=== PATIENT | male | born 1935 | race Caucasian/White ===

== ENCOUNTER 2021-05-27 10:28 | Outpatient (REF) | payer MEDICAID, SELFPAY | END 2021-05-27 10:29 | disposition home or self-care (01) | LOC: HO.SH 10:28 | PROVIDERS: Visit Provider Family Medicine | DX: Z13.89 Encounter for screening for other disorder (principal) ==

== ENCOUNTER 2021-06-11 13:14 | Outpatient (REF) | payer MEDICAID, SELFPAY ==
--- NOTE | 2021-06-12 11:29 | MHC.AU.MED ---
Medical Clearance for Hearing Instrumentation Date: 06/12/21 Patient Name: Shmuel Childs Date of : 1935 Referring Provider: Tony Chávez MD We have seen your patient on 06/11/21 and have determined that they are a candidate for amplification (See accompanying report). Specifically, they would benefit from: Hearing aid use in both ears There is a statute that addresses Medical Evaluation Requirements prior to fitting a patient with a hearing aid. According to [place] statute 265 CMR:6.03(1), (a) General. Except as provided in 265 CMR 6.03(1)(b), a cutter hot knife shall not sell a hearing aid unless the prospective user has presented to the cutter [employer] knife a written statement signed by a licensed physician that states that the patient's hearing loss has been medically evaluated and the patient may be considered a candidate for a hearing aid. The medical evaluation must have taken place within the preceding six months. Please note: Due to the [place] Statute referenced above, we cannot accept a signature other than that of a licensed physician. CAMERA TUNING ENGINEER and PA signatures cannot be accepted. I am in agreement with the above recommendation. There is no medical contraindication for hearing instrumentation. Physician Signature Date Physician Name (Printed)
--- NOTE | 2021-06-12 11:30 | MHC.AU.ANO ---
Adult Audiological Evaluation Date of Visit: 06/11/21 Dentist Private Practice Used: Brother provided Palauan interpretation Reason for Appointment: Patient was accompanied to the appointment by his brother, who provided most of the case history. Patient has been experiencing significant hearing difficulty. If he is in a group of people or if there is background noise, he is unable to follow along with conversation. There is a significant family history of age-related hearing loss. Does patient feel they have a hearing loss?: Yes If Yes, Which Ear?: Both Ears When Was Hearing Difficulty First Noticed?: Gradually developing for years Has hearing been tested previously?: No Hearing Handicap Inventory: HHIE SCORE: 36 Based on HHIE score, patient has: Severe perceived hearing handicap Ear History: Ear Deformity: None Reported Recent Ear Pain: None Reported Family History of Hearing Loss?: Yes Recent Ear Infections: None Reported Ear Infections in Childhood: None Reported History of Ear Wax Buildup: None Reported Previous Ear Surgery: None Reported Bothersome Tinnitus/Ringing/Noises in Ears: None Reported Ear used on the phone: Right Ear Blocked/Full Sensation in Ear(s): None Reported History of occupational noise exposure?: No History: No Medical History: Medical History: Hip Replacement Allergies: Penicillin Otoscopy: Right Ear: Unremarkable Left Ear: Unremarkable Tympanometry: Tympanometry performed due to: To assess integrity of the middle ear system Right Ear: Normal Middle Ear System (Type A) Left Ear: Normal Middle Ear System (Type A) Hearing Evaluation: Transducer(s) Used: Insert Earphones Method: Conventional Audiometry Stimuli Used: Pure Tones Right Ear: Description of Hearing: Moderate to profound sensorineural hearing loss Left Ear: Description of Hearing: Moderate to profound sensorineural hearing loss Speech Recognition Threshold (SRT): Method Used: Recorded Lists Stimuli Used: Palauan Trisyllable Words Right Ear: 60 dBHL Left Ear: 60 dBHL Word Discrimination: Method: Recorded Lists Word Lists Used: Lista Bisil?bica (Palauan) Right Ear: 72% at 95 dBHL Left Ear: 64% at 95 dBHL Recommendations: Audiological re-evaluation in one year. Patient is a candidate for hearing aids. See Hearing Aid Evaluation report for more information. 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
--- NOTE | 2021-06-12 11:30 | MHC.AU.HAS ---
Hearing Aid Evaluation Date of Visit: 06/11/21 Aeronautical Design Engineer Used: Brother provided Polish interpretation Historical Information: Description of Hearing: Moderate to profound sensorineural hearing loss Summary: Patient was seen for audiological evaluation (see separate report for details). Patient is interested in amplification. He would like one that is simple and easy to handle. He does not have a smartphone. Hearing Aid Prescription: Based on the individual?s shared listening needs, communication environments, dexterity, desire for connectivity, and personal preferences, the following prescription for amplification has been made: Right ear: Parks Worker: [employer] Model: Evolv AI 1600 ITC R Battery Size: Rechargeable Left ear: Parks Worker: Celia Model: Evolv AI 1600 ITC R Battery Size: Rechargeable Action Taken/Action Needed: Earmold Impressions Taken Medical Clearance to be requested from PCP/ENT Hearing Instrument Fitting to be scheduled when materials arrive Primary Diagnosis: H90.3 Bilateral Sensorineural Hearing Loss Signature: Provider: Reddy Moeller, CCC-A
== END 2021-06-11 13:15 | disposition home or self-care (01) ==
LOC: HO.SH 13:14
PROVIDERS: Visit Provider Family Medicine
DX: Z01.118 Encounter for examination of ears and hearing with other abnormal findings (principal); Z46.1 Encounter for fitting and adjustment of hearing aid; H90.3 Sensorineural hearing loss, bilateral
CPT/HCPCS: 92557; 92567; 92591; V5275

== ENCOUNTER 2021-07-24 10:34 | Outpatient (REF) | payer MEDICAID, SELFPAY | END 2021-07-24 10:35 | disposition home or self-care (01) | LOC: HO.HAP 10:34 | PROVIDERS: Visit Provider Family Medicine | DX: Z46.1 Encounter for fitting and adjustment of hearing aid (principal); H90.3 Sensorineural hearing loss, bilateral | CPT/HCPCS: V5011; V5020; V5160; V5259 ==